=== PATIENT | male | born 1980 | race Two or more races ===

== ENCOUNTER 2018-08-14 18:32 | Emergency (ER) | payer SELFPAY ==
[~2018-08-14] VITALS: Ht 172.7 cm; Wt 90.7 kg
[2018-08-14 18:37] VITALS: BP 146/102
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
--- NOTE | 2018-08-14 19:36 | NUR ---
PT BROUGHT TO XRAY
== END 2018-08-14 20:50 | disposition home or self-care (01) ==
LOC: ER 18:39
DX: M54.5 Low back pain (principal); V49.49XA Driver injured in collision with other motor vehicles in traffic accident, initial encounter; Y93.89 Activity, other specified; Y92.413 State road as the place of occurrence of the external cause; Y99.8 Other external cause status
CPT/HCPCS: 72110-TC; A4606; Z7610